=== PATIENT | female | born 1995 | race Caucasian/White ===

== ENCOUNTER 2017-02-23 14:36 | Outpatient (CLI) | payer MEDICAID ==
[~2017-02-23] VITALS: Ht 175.3 cm; Wt 90.3 kg
[2017-02-23 14:55] VITALS: BP 147/100
[2017-02-23 15:20] VITALS: BP 132/81
[2017-02-23 15:30] VITALS: BP 124/76
[2017-02-23 15:40] LABS: BASOPHILS % (AUTO) 0 % (0-10); EOSINOPHILS % (AUTO) 0 % (0-10); LYMPHOCYTES # (AUTO) 1.4 X 10^3 (1.0-4.0); LYMPHOCYTES % (AUTO) 12 % (12-44); MEAN CORPUSCULAR HEMOGLOBIN 28 PG (25-34); MEAN CORPUSCULAR HGB CONC 33 G/DL (32-36); MEAN CORPUSCULAR VOLUME 85 FL (80-99); MEAN PLATELET VOLUME 10.5 FL (7.4-10.4); MONOCYTES # (AUTO) 0.8 X 10^3 (0.0-1.0); MONOCYTES % (AUTO) 6 % (0-12); NEUTROPHILS # (AUTO) 9.4 X 10^3 (1.8-7.8); NEUTROPHILS % (AUTO) 81 % (42-75); PLATELET COUNT 254 10^3/uL (130-400); RED BLOOD COUNT 4.12 10^6/uL (4.35-5.85); RED CELL DISTRIBUTION WIDTH 13.6 % (10.0-14.5); WHITE BLOOD COUNT 11.6 10^3/uL (4.3-11.0)
[2017-02-23 15:50] VITALS: BP 119/66
[2017-02-23 15:53] LABS: PROTEIN/CREATININE RATIO 0.15
[2017-02-23 15:57] LABS: ALANINE AMINOTRANSFERASE 11 U/L (0-55); ALBUMIN 3.6 G/DL (3.2-4.5); ANION GAP 9 MMOL/L (5-14); ASPARTATE AMINO TRANSFERASE 14 U/L (5-34); BILIRUBIN,TOTAL 0.3 MG/DL (0.1-1.0); BLOOD UREA NITROGEN 7 MG/DL (7-18); BUN/CREATININE RATIO 10; CALCIUM 8.8 MG/DL (8.5-10.1); CARBON DIOXIDE 24 MMOL/L (21-32); CHLORIDE 104 MMOL/L (98-107); GFR ESTIMATED > 60; GLUCOSE 74 MG/DL (70-105); POTASSIUM 3.8 MMOL/L (3.6-5.0); SODIUM 137 MMOL/L (135-145); TOTAL PROTEIN 7.2 G/DL (6.4-8.2)
[2017-02-23 16:25] VITALS: BP 121/72
--- NOTE | 2017-02-25 15:05 | Physician Query-Final Dx ---
HARJINDER VITAL 02/25/17 1505: Clinic Account Progress/Dx Physician Query: Please give diagnosis Date of Service February 23, 2017 at 14:36 DARRICK SHARP DO 03/02/17 0834: Clinic Account Progress/Dx DIAGNOSIS: Diagnosis 36 week IUP Irregular contractions HARJINDER VITAL February 25, 2017 15:05 DARRICK SHARP DO March 02, 2017 08:34
== END 2017-02-23 16:35 | disposition home or self-care (01) ==
LOC: LDRP 14:36 → WSo 14:36
PROVIDERS: ATTEND Obstetrics & Gynecology
DX: O47.03 False labor before 37 completed weeks of gestation, third trimester (principal); Z3A.36 36 weeks gestation of pregnancy
CPT/HCPCS: 36415; 80053; 82570; 84156; 85025; 99214

== ENCOUNTER 2017-03-07 22:07 | Inpatient (IN) | payer MEDICAID ==
[~2017-03-07] VITALS: Ht 175.3 cm; Wt 93.4 kg
[2017-03-07 22:15] VITALS: BP 135/86
[2017-03-07] MEDS ORDERED: NS (IVPB) 50 ML ONE (22:48)
[2017-03-07] MEDS ORDERED: AMPICILLIN 1000 MG INJECTION (IV/IM) ONE (22:48)
[2017-03-07] MEDS ORDERED: D5 LR IV SOLUTION 1,000 ML IV ONE (22:48)
[2017-03-07 23:00] VITALS: BP 151/75
[2017-03-07 23:34] LABS: BILIRUBIN,URINE NEGATIVE (NEGATIVE); KETONES,URINE NEGATIVE (NEGATIVE); LEUKOCYTE ESTERASE ,URINE 1+ (NEGATIVE); NITRITE,URINE NEGATIVE (NEGATIVE); PH,URINE 6 (5-9); PROTEIN,URINE 2+ (NEGATIVE); UROBILINOGEN,URINE NORMAL (NORMAL)
[2017-03-07] MEDS: D5 LR IV SOLUTION 1,000 ML IV SCH (23:40)
[2017-03-07 23:45] VITALS: BP 148/81
[2017-03-07 23:45] LABS: CALCIUM OXALATE CRYSTALS,UR RARE /LPF; WBC,URINE 0-2 /HPF
[2017-03-08] VITALS (48 sets, daily range): BP systolic 103–165; BP diastolic 52–103
[2017-03-08 00:05] LABS: BASOPHILS % (AUTO) 0 % (0-10); EOSINOPHILS % (AUTO) 0 % (0-10); LYMPHOCYTES # (AUTO) 1.5 X 10^3 (1.0-4.0); LYMPHOCYTES % (AUTO) 12 % (12-44); MEAN CORPUSCULAR HEMOGLOBIN 28 PG (25-34); MEAN CORPUSCULAR HGB CONC 33 G/DL (32-36); MEAN CORPUSCULAR VOLUME 85 FL (80-99); MEAN PLATELET VOLUME 11.1 FL (7.4-10.4); MONOCYTES # (AUTO) 1.1 X 10^3 (0.0-1.0); MONOCYTES % (AUTO) 8 % (0-12); NEUTROPHILS # (AUTO) 10.4 X 10^3 (1.8-7.8); NEUTROPHILS % (AUTO) 80 % (42-75); PLATELET COUNT 241 10^3/uL (130-400); RED BLOOD COUNT 4.11 10^6/uL (4.35-5.85); RED CELL DISTRIBUTION WIDTH 14.1 % (10.0-14.5)
[2017-03-08] MEDS ORDERED: PREN1TAB86 PO (00:32)
[2017-03-08] MEDS ORDERED: MINERAL OIL CONCENTRATE 99.9% 15 ML UDC TOP PRN (00:45)
[2017-03-08] MEDS ORDERED: TETANUS,DIPTH,PERTUSS P/F (BOOSTRIX) 0.5 ML VIAL IM ONE (00:45)
[2017-03-08] MEDS ORDERED: SUFENTA 0.6MCG/ML BUPIVA 0.125 100 ML ONE (00:54)
[2017-03-08] MEDS ORDERED: fentaNYL INJECTION 100 MCG/2 ML AMP IVP PRN (01:00)
[2017-03-08] MEDS ORDERED: LACTATED RINGERS 0 ML IV ONE (01:52)
[2017-03-08] MEDS ORDERED: LACTATED RINGERS 1,000 ML IV ONE (02:22)
[2017-03-08] MEDS ORDERED: fentaNYL INJECTION 100 MCG/2 ML AMP INJ ONE (02:30)
[2017-03-08] MEDS ORDERED: METOCLOPRAMIDE INJ 10 MG/2 ML (REGLAN) IV PRN (02:30)
[2017-03-08] MEDS ORDERED: EPIDURAL (SUFENTA 0.6MCG/ML BUPIVA 0.125%) 100 ML BAG EPI PRN (02:30)
[2017-03-08] MEDS ORDERED: diphenhydrAMINE 50 MG/ML INJ (BENADRYL) IV PRN (02:30)
[2017-03-08] MEDS ORDERED: NALOXONE 0.4 MG/ML 1 ML (NARCAN) VIAL IV PRN ×2 (02:30)
[2017-03-08] MEDS ORDERED: ONDANSETRON 4 MG/2 ML (SDV) Z0FRAN IV PRN (02:30)
[2017-03-08] MEDS ORDERED: AMPICILLIN 1000 MG INJECTION (IV/IM) ONE (03:12)
[2017-03-08] MEDS ORDERED: NS (IVPB) 50 ML ONE (03:12)
[2017-03-08] MEDS ORDERED: AMPICILLIN INJECTION 1,000 MG in NS (IVPB) 50 ML IV SCH (04:45)
[2017-03-08] MEDS ORDERED: OXYTOCIN/NORMAL SALINE 500 ML IV SCH ×2 (05:31→10:53)
[2017-03-08] MEDS ORDERED: CATHETER FLUSH 10 ML SYR IV SCH ×2 (06:00→14:00)
[2017-03-08] MEDS: D5 LR IV SOLUTION 1,000 ML IV SCH (07:51)
--- NOTE | 2017-03-08 10:41 | History & Physical-OB ---
OB - Chief Complaint & HPI Date Date of Admission: Date of Admission: March 07, 2017 at 11:31 pm Chief Complaint/History OB-Reason for Admission/Chief: Rupture of Membranes Hx : 2 Hx Para: 1 Expected Date of Delivery: Mar 19, 2017 Gestational Age in Weeks: 38 Gestational Age in Days: 3 Other reason for admission: Patient presented to labor and delivery approximately 11:15 pm. she reported a pop and gush of clear fluid at 2030 and proceeded to the hospital. She is GBS + and was instructed to arrive as soon as possible as they live 45 min + away. She was lisy irregularly and 3 cm dilated/50% effaced on admission. she was admitted for labor. uncomplicated. Other A +, antibody - VDRL NR HBsAg - HIV - Rubella I GBS + Allergies and Home Medications Allergies Coded Allergies: No Known Drug Allergies (Unverified , 03/08/17) Home Medications Vit W-Ca,Fe,FA(<1 mg) 1 Each Tablet, 1 EACH PO DAILY, (Reported) OB - History Hx of Present Care: Yes Ultrasounds: Normal mid trimester US Obstetrical Complications: None Medical Complications: None Information Induced Hypertension: No Maternal Gestational Diabetes: No Hemorrhage: No Obstetrical History Hx : 2 Hx Para: 1 Hx # Term Pregnancies: 1 Hx # Pregnancies: 0 Number of Living Children: 1 Hx Termination: No Hx Multiple Gestation: No Hx Ectopic : No Hx Stillbirth: No Hx Complication: No Hx Induced Hypertens: No Hx Maternal Gestational Diabet: No Hx Hemorrhage: No Delivery History Hx Dystocia: No Hx Forceps Assisted Delivery: No Hx Vacuum Extraction Assisted: No Hx Placenta Abnormality: No Hx Distress: No Hx Large For Gestational Age I: No Hx Small for Gestational Age I: No Hx Section: No Hx Vaginal Delivery Post C-Sec: No Hx Blood Disorders: No Adverse Rxn to Tranfusion: No Patient Past Medical History NC Social History/Family History HIV/AIDS: No Recent Infectious Disease Expo: No Sexually Transmitted Disease: No Alcohol Use: Denies Use Recreational Drug Use: No Smoking Cessation: Never smoker Immunizations Hepatitis A: No Hepatitis B: No Tetanus Booster (TDap): Less than 5yrs (not during this , will need booster) Rubella: immune RPR/VDRL: Negative GBS Status: Positive HBsAG: Negative OB - Admission Exam Physical Exam Vitals: Vital Signs 03/08/17 03/08/17 03/08/17 03/08/17 06:30 08:15 09:00 09:30 Temp 98.1 Pulse 81 Resp 18 B/P (MAP) 135/75 Pulse Ox 97 O2 Flow Rate 10.00 Heart: Rhythm Normal Lungs: Clear, Equal Abdomen: Gravid Extremities: Normal Reflexes: Normal Cervical Dilatation: 3cm Effacement: 50% Station: -2 Membranes: Ruptured Amniotic Fluid: Clear Heart Rate: 140's Accelerations: Accelerations Present Decelerations: No Decelerations Short Term Variability: Present Product Safety Officer Variability: Average (6-25) Contractions on Admission: < 5 Minutes Apart Labs Laboratory Tests Test 03/07/17 23:15 03/07/17 23:40 Range/Units Urine Color YELLOW Urine Clarity CLEAR Urine pH 6 5-9 Urine Specific [place] 1.020 1.016-1.022 Urine Protein 2+ H NEGATIVE Urine Glucose (UA) NEGATIVE NEGATIVE Urine Ketones NEGATIVE NEGATIVE Urine Nitrite NEGATIVE NEGATIVE Urine Bilirubin NEGATIVE NEGATIVE Urine Urobilinogen NORMAL NORMAL MG/DL Urine Leukocyte Esterase 1+ H NEGATIVE Urine RBC (Auto) NEGATIVE NEGATIVE Urine RBC NONE /HPF Urine WBC 0-2 /HPF Urine Squamous Epithelial Cells 2-5 /HPF Urine Crystals PRESENT H /LPF Urine Calcium Oxalate Crystals RARE H /LPF Urine Bacteria TRACE /HPF Urine Casts NONE /LPF Urine Mucus MODERATE H /LPF Urine Culture Indicated NO White Blood Count 13.0 H 4.3-11.0 10^3/uL Red Blood Count 4.11 L 4.35-5.85 10^6/uL Hemoglobin 11.5 11.5-16.0 G/DL Hematocrit 35 35-52 % Mean Corpuscular Volume 85 80-99 FL Mean Corpuscular Hemoglobin 28 25-34 PG Mean Corpuscular Hemoglobin Concent 33 32-36 G/DL Red Cell Distribution Width 14.1 10.0-14.5 % Platelet Count 241 130-400 10^3/uL Mean Platelet Volume 11.1 H 7.4-10.4 FL Neutrophils (%) (Auto) 80 H 42-75 % Lymphocytes (%) (Auto) 12 12-44 % Monocytes (%) (Auto) 8 0-12 % Eosinophils (%) (Auto) 0 0-10 % Basophils (%) (Auto) 0 0-10 % Neutrophils # (Auto) 10.4 H 1.8-7.8 X 10^3 Lymphocytes # (Auto) 1.5 1.0-4.0 X 10^3 Monocytes # (Auto) 1.1 H 0.0-1.0 X 10^3 Eosinophils # (Auto) 0.0 0.0-0.3 10^3/uL Basophils # (Auto) 0.0 0.0-0.1 10^3/uL OB - Assessment/Plan/Diagnosis Assessment Assessment: active labor, group B positive strep, rupture of membranes Plan Plan: Expectant Management, Other (Anticipate . Start Ampicillin for GBS prophylaxis. Will use peds as she has peds out of town. (Nadiya)) SOBIA WELSH DO March 08, 2017 10:41 am
--- NOTE | 2017-03-08 10:51 | OB Labor & Delivery Record ---
Vag Delivery Note Vag Delivery Note Date of Delivery: 03/08/17 Preoperative Diagnosis: Sarah Hwang is a 22 /Para 2 / 1,Gestational Age 38 3/7 weeks, SROM, GBS + Postoperative Diagnosis: Same Surgeon: SOBIA WELSH Anesthesia: epidural Delivery Type: Findings: Viable male , apgars 8/9, weight 7#9oz Lacerations: 1st degree, right periurethral. Intact placenta with 3 vessel cord. Nuchal cord x 1 reduced (loose), No body cord or shoulder dystocia. Received 3 total doses of IV ampicillin. Estimated Blood Loss: 200 ml Complications: None Condition: Stable Description of Procedure: The patient is a 22 year old at 38 3/7 weeks who presented with complaint of spontaneous labor. She was in early labor. She was GBS + so ampicillin was started for GBS prophylaxis. She was admitted and informed consent was obtained. Her labor course was remarkable for above. At 0530, contractions began to slow so Pitocin was started pre protocol. She progressed to complete dilatation and began to push. She was then set up for delivery. The 's head was delivered atraumatically in the PERFECTO position. There was a nuchal cord x 1 delivered through. The shoulders and remainder of the 's body were then delivered without difficulty. Upon delivery, the head was held below the level of the perineum and the mouth and nares were bulb suctioned. The cord was doubly clamped and cut and the infant was handed off to the pediatric staff. An intact placenta with 3-vessel cord delivered via [place] and there was found to be minimal bleeding.~ Vigorous fundal massage was performed and the fundus was found to be firm. IV oxytocin was given. Examination of the vagina and perineum revealed a 1st degree laceration repaired in the usual fashion with 3-0 Vicryl suture. There was also a right periurethral laceration that began about 1mm superior to the urethra. I placed a red rubber catheter and noted that the laceration did not extend to the urethra. This was repaired with 3-0 Vicryl in a running fashion. Following the repair, sponge, instrument and needle counts were correct. Mom and baby were both in stable condition in the labor suite. Vitals - Labs Vital Signs - I&O Vital Signs Date Time Temp Pulse Resp B/P (MAP) Pulse Ox O2 Delivery O2 Flow Rate FiO2 03/08/17 09:30 81 18 135/75 03/08/17 09:15 90 18 129/70 03/08/17 09:00 68 18 132/72 97 03/08/17 08:45 77 18 137/82 100 03/08/17 08:30 75 18 138/75 100 03/08/17 08:15 69 18 141/77 100 10.00 03/08/17 08:00 71 18 137/86 100 10.00 03/08/17 07:45 75 18 127/65 100 10.00 03/08/17 07:30 68 18 138/68 100 10.00 03/08/17 07:15 81 18 136/77 100 10.00 03/08/17 07:00 73 18 140/76 100 10.00 03/08/17 06:45 97 10.00 03/08/17 06:30 98.1 83 20 97 03/08/17 06:15 98.1 84 20 135/81 03/08/17 06:02 84 20 135/81 03/08/17 05:45 86 20 139/83 03/08/17 05:30 89 20 135/77 03/08/17 05:15 75 20 110/52 03/08/17 05:05 78 18 103/54 03/08/17 04:30 78 18 117/56 03/08/17 04:15 71 20 122/56 03/08/17 04:00 94 20 128/63 03/08/17 03:45 75 20 133/75 03/08/17 03:30 99 20 131/81 03/08/17 03:15 91 18 137/89 100 03/08/17 03:00 91 20 137/86 03/08/17 02:45 90 20 134/81 03/08/17 02:30 96.9 92 20 139/69 100 03/08/17 02:12 82 20 141/71 100 03/08/17 02:08 89 20 161/80 100 03/08/17 02:06 93 20 153/103 100 03/08/17 02:00 90 20 165/85 100 03/08/17 01:30 80 20 137/87 03/08/17 01:15 82 20 144/73 03/08/17 01:00 93 20 156/80 03/08/17 00:45 97.1 86 20 157/77 03/08/17 00:30 105 20 148/67 03/08/17 00:15 95 20 154/76 03/08/17 00:01 95 20 154/76 03/07/17 23:45 91 20 148/81 03/07/17 23:00 89 20 151/75 03/07/17 22:15 69.7 86 20 135/86 I & O 03/08/17 07:00 Intake Total 700 ml Output Total 500 ml Balance 200 ml Labs Laboratory Tests 03/07/17 23:15: Urine Color YELLOW, Urine Clarity CLEAR, Urine pH 6, Urine Specific [place] 1.020, Urine Protein 2+H, Urine Glucose (UA) NEGATIVE, Urine Ketones NEGATIVE, Urine Nitrite NEGATIVE, Urine Bilirubin NEGATIVE, Urine Urobilinogen NORMAL, Urine Leukocyte Esterase 1+H, Urine RBC (Auto) NEGATIVE, Urine RBC NONE, Urine WBC 0-2, Urine Squamous Epithelial Cells 2-5, Urine Crystals PRESENTH, Urine Calcium Oxalate Crystals RAREH, Urine Bacteria TRACE, Urine Casts NONE, Urine Mucus MODERATEH, Urine Culture Indicated NO 03/07/17 23:40: White Blood Count 13.0H, Red Blood Count 4.11L, Hemoglobin 11.5, Hematocrit 35, Mean Corpuscular Volume 85, Mean Corpuscular Hemoglobin 28, Mean Corpuscular Hemoglobin Concent 33, Red Cell Distribution Width 14.1, Platelet Count 241, Mean Platelet Volume 11.1H, Neutrophils (%) (Auto) 80H, Lymphocytes (%) (Auto) 12, Monocytes (%) (Auto) 8, Eosinophils (%) (Auto) 0, Basophils (%) (Auto) 0, Neutrophils # (Auto) 10.4H, Lymphocytes # (Auto) 1.5, Monocytes # (Auto) 1.1H, Eosinophils # (Auto) 0.0, Basophils # (Auto) 0.0 SOBIA WELSH DO March 08, 2017 10:51 am
[2017-03-08] MEDS ORDERED: MEASLES,MUMPS,RUBELLA 1 EA INJ SQ ONE (11:00)
[2017-03-08] MEDS ORDERED: DIBUCAINE (NUPERCAINAL) 1% OINT 30 GM TOP PRN (11:00)
[2017-03-08] MEDS ORDERED: BENZOCAINE/MENTHOL (DERMOPLAST) 56 ML CAN TP PRN (11:00)
[2017-03-08] MEDS ORDERED: WITCH HAZEL(TUCKS) 40 EA JAR TOP PRN (11:00)
[2017-03-08] MEDS: IBUPROFEN 600 MG (MOTRIN) TAB PO SCH ×2 (12:25→18:18)
[2017-03-08] MEDS: DOCUSATE SODIUM 100 MG (COLACE) CAP PO SCH (20:53)
[2017-03-09 00:16] VITALS: BP 125/79
[2017-03-09] MEDS: IBUPROFEN 600 MG (MOTRIN) TAB PO SCH ×3 (00:16→12:40)
[2017-03-09 04:50] VITALS: BP 118/62
[2017-03-09 06:07] LABS: BASOPHILS % (AUTO) 0 % (0-10); EOSINOPHILS % (AUTO) 0 % (0-10); LYMPHOCYTES # (AUTO) 1.1 X 10^3 (1.0-4.0); LYMPHOCYTES % (AUTO) 10 % (12-44); MEAN CORPUSCULAR HEMOGLOBIN 28 PG (25-34); MEAN CORPUSCULAR HGB CONC 32 G/DL (32-36); MEAN CORPUSCULAR VOLUME 86 FL (80-99); MEAN PLATELET VOLUME 10.8 FL (7.4-10.4); MONOCYTES # (AUTO) 0.8 X 10^3 (0.0-1.0); MONOCYTES % (AUTO) 8 % (0-12); NEUTROPHILS # (AUTO) 9.1 X 10^3 (1.8-7.8); NEUTROPHILS % (AUTO) 82 % (42-75); PLATELET COUNT 206 10^3/uL (130-400); RED BLOOD COUNT 3.74 10^6/uL (4.35-5.85); RED CELL DISTRIBUTION WIDTH 14.3 % (10.0-14.5); WHITE BLOOD COUNT 11.1 10^3/uL (4.3-11.0)
[2017-03-09] MEDS ORDERED: PRENATAL VITAMIN 1 EA TAB PO SCH (07:00)
[2017-03-09 08:00] VITALS: BP 123/74
[2017-03-09] MEDS: DOCUSATE SODIUM 100 MG (COLACE) CAP PO SCH (08:04)
[2017-03-09] MEDS ORDERED: FERROUS SULF 325 MG (IRON) TAB PO SCH (09:00)
[2017-03-09] MEDS ORDERED: TETANUS,DIPTH,PERTUSS P/F (BOOSTRIX) 0.5 ML VIAL IM ONE (09:52)
--- NOTE | 2017-03-09 10:24 | Postpartum Progress Note ---
Note Note Day # 1 s/p doing well Subjective: Patient is without complaints. Ambulating, voiding. Tolerating a regular diet without nausea or vomiting. Normal lochia. Pain is well controlled with oral pain medications. breast feeding Objective: Laboratory Tests Test 03/09/17 05:55 Range/Units White Blood Count 11.1 H 4.3-11.0 10^3/uL Red Blood Count 3.74 L 4.35-5.85 10^6/uL Hemoglobin 10.3 L 11.5-16.0 G/DL Hematocrit 32 L 35-52 % Mean Corpuscular Volume 86 80-99 FL Mean Corpuscular Hemoglobin 28 25-34 PG Mean Corpuscular Hemoglobin Concent 32 32-36 G/DL Red Cell Distribution Width 14.3 10.0-14.5 % Platelet Count 206 130-400 10^3/uL Mean Platelet Volume 10.8 H 7.4-10.4 FL Neutrophils (%) (Auto) 82 H 42-75 % Lymphocytes (%) (Auto) 10 L 12-44 % Monocytes (%) (Auto) 8 0-12 % Eosinophils (%) (Auto) 0 0-10 % Basophils (%) (Auto) 0 0-10 % Neutrophils # (Auto) 9.1 H 1.8-7.8 X 10^3 Lymphocytes # (Auto) 1.1 1.0-4.0 X 10^3 Monocytes # (Auto) 0.8 0.0-1.0 X 10^3 Eosinophils # (Auto) 0.0 0.0-0.3 10^3/uL Basophils # (Auto) 0.0 0.0-0.1 10^3/uL Vital Sign - Last 12Hours 03/09/17 03/09/17 03/09/17 00:16 04:50 08:00 Temp 97.5 97.3 97.6 Pulse 74 78 83 Resp 18 18 18 B/P (MAP) 125/79 118/62 123/74 Pulse Ox 98 97 97 Physical Exam: General - Alert and oriented, no apparent distress Abdomen - Soft, appropriately tender to palpation, non-distended, fundus firm at umbilicus Extremities - no edema, negative Jay's bilaterally Assessment: 1. post- day # a, status post spontaneous vaginal delivery. Recovering well, hemodynamically stable Plan: Routine care. Encourage breast feeding. Encourage ambulation. Plan for discharge today Vitals - Labs Vital Signs - I&O Vital Signs Date Time Temp Pulse Resp B/P (MAP) Pulse Ox O2 Delivery O2 Flow Rate FiO2 03/09/17 08:00 97.6 83 18 123/74 97 03/09/17 04:50 97.3 78 18 118/62 97 03/09/17 00:16 97.5 74 18 125/79 98 03/08/17 20:53 97.5 79 18 121/73 98 03/08/17 18:20 98.4 97 18 127/67 98 03/08/17 12:15 97.3 86 18 136/74 03/08/17 11:13 75 136/71 03/08/17 11:04 86 129/60 03/08/17 10:49 80 144/63 03/08/17 10:34 77 142/68 03/08/17 10:30 99 18 157/82 I & O 03/09/17 07:00 Intake Total 1550 ml Balance 1550 ml Labs Laboratory Tests 03/09/17 05:55: White Blood Count 11.1H, Red Blood Count 3.74L, Hemoglobin 10.3L, Hematocrit 32L , Mean Corpuscular Volume 86, Mean Corpuscular Hemoglobin 28, Mean Corpuscular Hemoglobin Concent 32, Red Cell Distribution Width 14.3, Platelet Count 206, Mean Platelet Volume 10.8H, Neutrophils (%) (Auto) 82H, Lymphocytes (%) (Auto) 10L, Monocytes (%) (Auto) 8, Eosinophils (%) (Auto) 0, Basophils (%) (Auto) 0, Neutrophils # (Auto) 9.1H, Lymphocytes # (Auto) 1.1, Monocytes # (Auto) 0.8, Eosinophils # (Auto) 0.0, Basophils # (Auto) 0.0 SOBIA WELSH DO March 09, 2017 10:24 am
[2017-03-09] MEDS ORDERED: IBUP-1773 PO (10:25)
--- NOTE | 2017-03-09 10:27 | Discharge Inst-Women's Service ---
Discharge Inst-Women's Serv Depart Medication/Instructions New, Converted or Re-Newed RX: Call to Patients Pharmacy Final Diagnosis spontaneous rupture of membranes GBS + vaginal delivery epidural Consults/Follow Up Additional Follow Up: Yes (2 weeks if needed and [address] Welsh) Activity Activity: Activity as Tolerated Driving Instructions: You May Drive NO SMOKING: NO SMOKING Nothing Inside Vagina: No Douching, No [place], No Tampons Diet Discharge Diet: No Restrictions Symptoms to Report to : Swelling Increased, Pain Increased, Fever Over 101 Degrees F, Vaginal Bleeding Increase, Cramps in Feet or Legs, Vaginal Discharge Foul For Any Problems or Questions: Contact Your Physician SOBIA WELSH DO March 09, 2017 10:26 am
[2017-03-09 12:30] VITALS: BP 127/77
[2017-03-09 13:45] VITALS: BP 127/77
== END 2017-03-09 13:45 | disposition home or self-care (01) | DRG 775 ==
LOC: WSo 22:07 → LDRP 22:07 → WSo 23:31 → LDRP 23:31
PROVIDERS: ADMIT Obstetrics & Gynecology; ATTEND Obstetrics & Gynecology
PROC: 0HQ9XZZ Repair Perineum Skin, External Approach (ICD-10-PCS; principal; 2017-03-08)
PROC: 10E0XZZ Delivery of Products of Conception, External Approach (ICD-10-PCS; 2017-03-08)
DX: O99.824 Streptococcus B carrier state complicating childbirth (principal); O70.0 First degree perineal laceration during delivery; O69.81X0 Labor and delivery complicated by cord around neck, without compression, not applicable or unspecified; Z3A.38 38 weeks gestation of pregnancy; Z37.0 Single live birth; Z23 Encounter for immunization
CPT/HCPCS: 36415; 81000; 85025; 86850; 86900; 86901; 90715; 99212